=== PATIENT | male | born 1950 ===

== ENCOUNTER 2017-01-13 06:30 | Day surgery (SDC) | payer MEDICARE ==
[2017-01-13 07:05] VITALS: BMI 32.5
[2017-01-13] MEDS ORDERED: Propofol 10 mg/ml Inj (20 ML) ONE ×3 (07:59→08:36)
[2017-01-13] MEDS ORDERED: Lactated Ringer's 500 ML IV ONE (08:00)
[2017-01-13 09:02] VITALS: TEMP 98.4
[2017-01-13 09:08] VITALS: RESP 18
[2017-01-13 10:35] VITALS: BP 151/65; PULSE 69; O2SAT 98
== END 2017-01-13 09:35 | disposition home or self-care (01) ==
LOC: C.ENDO 06:30
PROVIDERS: ATTEND Internal Medicine Gastroenterology
DX: D12.3 Benign neoplasm of transverse colon (principal); D12.5 Benign neoplasm of sigmoid colon
CPT/HCPCS: 45388; 88305; J2001; J2704; J7120